=== PATIENT | male | born 1990 | race Caucasian/White ===

== ENCOUNTER → 2020-09-04 | Outpatient (CLI) | payer OTHER ==
[2020-09-04 16:44] LABS: BASOPHILS PERCENT AUTO 1 % (0-2); EOSINOPHILS ABSOLUTE AUTO 0.24 K/mm3 (0.00-0.68); EOSINOPHILS PERCENT AUTO 3 % (0-6); Hematocrit 50.2 % (37.0-53.0); Hemoglobin 15.6 g/dL (13.5-17.5); IMMATURE GRAN ABSOLUTE AUTO 0.01 K/mm3 (0.00-0.10); IMMATURE GRAN PERCENT AUTO 0 % (0-1); LYMPHOCYTES ABSOLUTE AUTO 2.19 K/mm3 (0.84-5.20); LYMPHOCYTES PERCENT AUTO 29 % (21-46); MONOCYTES ABSOLUTE AUTO 0.36 K/mm3 (0.16-1.47); MONOCYTES PERCENT AUTO 5 % (4-13); Mean Corpuscular HGB 30.6 pg (26.0-34.0); Mean Corpuscular HGB Conc 31.1 g/dL (31.5-36.5); Mean Corpuscular Volume 99 fL (80-100); Mean Platelet Volume 9.1 fL (9.1-12.4); NEUTROPHILS ABSOLUTE AUTO 4.71 K/mm3 (1.96-9.15); NEUTROPHILS PERCENT AUTO 62 % (41-73); Platelet Count 331 K/mm3 (150-400); RDW Coefficient Variation 14.1 % (11.7-14.2); RDW Standard Deviation 51.7 fL (35.1-46.3); Red Blood Cell Count 5.09 M/mm3 (4.30-5.90); White Blood Cell Count 7.61 K/mm3 (4.00-11.30)
[2020-09-04 17:31] LABS: Alanine Aminotransfer (ALT/SGP 24 U/L (12-78); Albumin, Blood 3.7 g/dL (3.4-5.0); Albumin/Globulin Ratio 0.9 (0.8-1.8); Alk Phos 54 U/L (50-136); Anion Gap 3 mmol/L (6-16); Aspartate Aminotrans (AST/SGOT 28 U/L (12-37); Bilirubin, Total 0.4 mg/dL (0.1-1.0); Blood Urea Nitrogen 10 mg/dL (8-24); CO2, Blood 30 mmol/L (21-32); Calcium, Blood 9.6 mg/dL (8.5-10.1); Chloride, Blood 105 mmol/L (98-108); Creatinine, Blood 1.11 mg/dL (0.60-1.20); Globulin, Blood 4.3 g/dL (2.2-4.0); Glomerular Filtration Rate >60 (60-); Glucose, Blood 84 mg/dL (70-99); Potassium, Blood 4.5 mmol/L (3.5-5.5); Sodium, Blood 138 mmol/L (136-145)
== END | disposition home or self-care (01) ==
LOC: LAB SHORT 15:05
PROVIDERS: Physician Assistant
DX: I10 Essential (primary) hypertension (principal); R60.0 Localized edema
CPT/HCPCS: 80053; 83880; 84443; 85025

== ENCOUNTER 2021-01-19 10:07 | Emergency (ER) | payer OTHER ==
[~2021-01-19] VITALS: Ht 167.6 cm; Wt 217.7 kg
[2021-01-19] MEDS ORDERED: ALBU90OI INH (11:23)
[2021-01-19] MEDS ORDERED: Prinivil10 MG (11:23)
[2021-01-19 11:33] LABS: BASOPHILS ABSOLUTE AUTO 0.09 K/mm3 (0.00-0.23); BASOPHILS PERCENT AUTO 1 % (0-2); EOSINOPHILS ABSOLUTE AUTO 0.21 K/mm3 (0.00-0.68); EOSINOPHILS PERCENT AUTO 3 % (0-6); Hemoglobin 14.2 g/dL (13.5-17.5); IMMATURE GRAN ABSOLUTE AUTO 0.01 K/mm3 (0.00-0.10); IMMATURE GRAN PERCENT AUTO 0 % (0-1); LYMPHOCYTES ABSOLUTE AUTO 2.28 K/mm3 (0.84-5.20); LYMPHOCYTES PERCENT AUTO 32 % (21-46); MONOCYTES ABSOLUTE AUTO 0.37 K/mm3 (0.16-1.47); MONOCYTES PERCENT AUTO 5 % (4-13); Mean Corpuscular HGB 30.3 pg (26.0-34.0); Mean Corpuscular HGB Conc 31.6 g/dL (31.5-36.5); Mean Corpuscular Volume 96 fL (80-100); Mean Platelet Volume 8.6 fL (9.1-12.4); NEUTROPHILS ABSOLUTE AUTO 4.25 K/mm3 (1.96-9.15); NEUTROPHILS PERCENT AUTO 59 % (41-73); Platelet Count 296 K/mm3 (150-400); RDW Coefficient Variation 14.5 % (11.7-14.2); RDW Standard Deviation 51.1 fL (35.1-46.3); Red Blood Cell Count 4.68 M/mm3 (4.30-5.90); White Blood Cell Count 7.21 K/mm3 (4.00-11.30)
[2021-01-19 11:37] LABS: Base Excess Venous 6.1 mmol/L; PCO2 Venous 52.9 mmHg (38-42); PO2 Venous 42.3 mmHg (38-42); pH Blood Venous 7.38 (7.34-7.37)
[2021-01-19 11:52] LABS: Influenza A, PCR NEGATIVE (NEGATIVE); Influenza B, PCR NEGATIVE (NEGATIVE); Resp Syncytial Virus, PCR NEGATIVE (NEGATIVE); SARS-Cov-2 (COVID-19) PCR, MMC NEGATIVE (NEGATIVE)
[2021-01-19 11:59] LABS: Alanine Aminotransfer (ALT/SGP 22 U/L (12-78); Albumin, Blood 3.2 g/dL (3.4-5.0); Albumin/Globulin Ratio 0.7 (0.8-1.8); Alk Phos 48 U/L (50-136); Anion Gap 6 mmol/L (6-16); Aspartate Aminotrans (AST/SGOT 25 U/L (12-37); Bilirubin, Total 0.5 mg/dL (0.1-1.0); Blood Urea Nitrogen 13 mg/dL (8-24); Bun/Creatinine Ratio 12.1 (12.0-20.0); CO2, Blood 29 mmol/L (21-32); Calcium, Blood 9.8 mg/dL (8.5-10.1); Chloride, Blood 103 mmol/L (98-108); Creatinine, Blood 1.07 mg/dL (0.60-1.20); Globulin, Blood 4.4 g/dL (2.2-4.0); Glomerular Filtration Rate >60 (60-); Glucose, Blood 90 mg/dL (70-99); Potassium, Blood 4.2 mmol/L (3.5-5.5); Sodium, Blood 138 mmol/L (136-145); Total Protein, Blood 7.6 g/dL (6.4-8.2); Troponin I <0.015 ng/mL (0.000-0.040)
[2021-01-19] MEDS ORDERED: Lasix20 MG PO (12:52)
== END 2021-01-19 13:13 | disposition home or self-care (01) ==
LOC: ER 10:07
PROVIDERS: Emergency Medicine
DX: R60.0 Localized edema (principal); F41.9 Anxiety disorder, unspecified; F32.9 Major depressive disorder, single episode, unspecified; J45.909 Unspecified asthma, uncomplicated; E66.01 Morbid (severe) obesity due to excess calories; Z79.899 Other long term (current) drug therapy; Z68.45 Body mass index [BMI] 70 or greater, adult; Z20.822 Contact with and (suspected) exposure to COVID-19
CPT/HCPCS: 0241U; 36415; 71046; 80053; 82803; 83880; 84443; 84484; 85025; 93005; 93010; 99285-25

== ENCOUNTER 2022-07-17 20:22 | Inpatient (IN) | payer OTHER ==
[~2022-07-17] VITALS: Ht 167.6 cm; Wt 247.7 kg
[~2022-07-17 20:22] MED LIST: ALBU90OI INH; Lasix20 MG PO; Prinivil10 MG
[2022-07-17 21:19] LABS: BASOPHILS ABSOLUTE AUTO 0.08 K/mm3 (0.00-0.23); BASOPHILS PERCENT AUTO 1 % (0-2); EOSINOPHILS ABSOLUTE AUTO 0.03 K/mm3 (0.00-0.68); EOSINOPHILS PERCENT AUTO 0 % (0-6); Hematocrit 45.5 % (37.0-53.0); Hemoglobin 14.7 g/dL (13.5-17.5); IMMATURE GRAN ABSOLUTE AUTO 0.03 K/mm3 (0.00-0.10); IMMATURE GRAN PERCENT AUTO 0 % (0-1); LYMPHOCYTES ABSOLUTE AUTO 1.64 K/mm3 (0.84-5.20); LYMPHOCYTES PERCENT AUTO 19 % (21-46); MONOCYTES ABSOLUTE AUTO 0.51 K/mm3 (0.16-1.47); MONOCYTES PERCENT AUTO 6 % (4-13); Mean Corpuscular HGB 29.8 pg (26.0-34.0); Mean Corpuscular HGB Conc 32.3 g/dL (31.5-36.5); Mean Corpuscular Volume 92 fL (80-100); Mean Platelet Volume 8.5 fL (9.1-12.4); NEUTROPHILS PERCENT AUTO 74 % (41-73); Platelet Count 247 K/mm3 (150-400); RDW Coefficient Variation 15.4 % (11.7-14.2); RDW Standard Deviation 52.4 fL (35.1-46.3); Red Blood Cell Count 4.94 M/mm3 (4.30-5.90); White Blood Cell Count 8.79 K/mm3 (4.00-11.30)
[2022-07-17 21:28] LABS: Albumin, Blood 3.5 g/dL (3.4-5.0); Albumin/Globulin Ratio 0.9 (0.8-1.8); Bilirubin, Total 1.5 mg/dL (0.1-1.0); Bun/Creatinine Ratio 9.7 (12.0-20.0); Calcium, Blood 9.2 mg/dL (8.5-10.1); Creatinine, Blood 1.24 mg/dL (0.60-1.20); Potassium, Blood 4.2 mmol/L (3.5-5.5); Total Protein, Blood 7.5 g/dL (6.4-8.2)
[2022-07-17 21:57] LABS: Influenza A, PCR NEGATIVE (NEGATIVE); Influenza B, PCR NEGATIVE (NEGATIVE); Resp Syncytial Virus, PCR NEGATIVE (NEGATIVE); SARS-Cov-2 (COVID-19) PCR, MMC NEGATIVE (NEGATIVE)
[2022-07-17] MEDS ORDERED: POTA8 (21:58)
[2022-07-18] MEDS ORDERED: ATOMOXETINE HCL80 M3 PO ×2 (00:17)
[2022-07-18 00:28] VITALS: BP 138/84
--- NOTE | 2022-07-18 01:49 | NUR ---
Pt arrived to floor by streacher, pt able to stand and walk with out difficulty. Pt is a&o x4 pt hot and fan paced to blow cool arit on pt pt sponged down a litle and powder applyed to help pt feel less sticky . Pt had stated he had been using nystatin powder, skin looked good with danuta some pinkness to folds. Belly button was red and irritated and pt given triple antibiotic ointment to put on belly button. Pt resting on his stomach looking at phone. Call light in reach.
[2022-07-18 04:17] VITALS: BP 153/94
[2022-07-18 06:56] LABS: Albumin, Blood 3.1 g/dL (3.4-5.0); Albumin/Globulin Ratio 0.8 (0.8-1.8); Bilirubin, Total 0.8 mg/dL (0.1-1.0); Bun/Creatinine Ratio 11.4 (12.0-20.0); Calcium, Blood 8.8 mg/dL (8.5-10.1); Creatinine, Blood 1.14 mg/dL (0.60-1.20); Globulin, Blood 3.7 g/dL (2.2-4.0); Potassium, Blood 4.2 mmol/L (3.5-5.5); Total Protein, Blood 6.8 g/dL (6.4-8.2)
[2022-07-18 07:33] VITALS: BP 162/94
[2022-07-18 08:25] LABS: BASOPHILS ABSOLUTE AUTO 0.06 K/mm3 (0.00-0.23); BASOPHILS PERCENT AUTO 1 % (0-2); EOSINOPHILS ABSOLUTE AUTO 0.06 K/mm3 (0.00-0.68); EOSINOPHILS PERCENT AUTO 1 % (0-6); Hematocrit 43.7 % (37.0-53.0); Hemoglobin 13.8 g/dL (13.5-17.5); IMMATURE GRAN ABSOLUTE AUTO 0.02 K/mm3 (0.00-0.10); IMMATURE GRAN PERCENT AUTO 0 % (0-1); LYMPHOCYTES ABSOLUTE AUTO 1.47 K/mm3 (0.84-5.20); LYMPHOCYTES PERCENT AUTO 21 % (21-46); MONOCYTES ABSOLUTE AUTO 0.49 K/mm3 (0.16-1.47); MONOCYTES PERCENT AUTO 7 % (4-13); Mean Corpuscular HGB 29.5 pg (26.0-34.0); Mean Corpuscular HGB Conc 31.6 g/dL (31.5-36.5); Mean Corpuscular Volume 93 fL (80-100); Mean Platelet Volume 8.4 fL (9.1-12.4); NEUTROPHILS ABSOLUTE AUTO 4.96 K/mm3 (1.96-9.15); NEUTROPHILS PERCENT AUTO 70 % (41-73); Platelet Count 217 K/mm3 (150-400); RDW Coefficient Variation 15.7 % (11.7-14.2); RDW Standard Deviation 54.4 fL (35.1-46.3); Red Blood Cell Count 4.68 M/mm3 (4.30-5.90); White Blood Cell Count 7.06 K/mm3 (4.00-11.30)
[2022-07-18 15:47] VITALS: BP 148/103
--- NOTE | 2022-07-18 20:01 | NUR ---
SUMMARY- PT A/O X4, INDEPENDANT IN ROOM. VOIDS IN BATHROOM. TOLERATING FOOD AND FLUIDS. REDNESS TO LLE REMAINS UNCHANGED, MARKED WITH SHARPIE. STATES HE FEELS A LITTLE WEAK AND TIRED BUT OVERALL OK. HOPING TO GO HOME TOMORROW ON ORAL ABX HE HAS A CAT AND ALOT HE HAS TO DO. LOST HIS I.D. CARE IN ED DURING ADMISSION, THEY NEVER BROUGHT HIS CARD BACK. RN AND PT LOOKED THROROUGHLY THROUGH HIS CHART AND ONLY BELONGINGS ARE THE CLOTHS HE IS WEARING, NOT ABLE TO FIND. PT TOP SPOTTER NOTIFIED VIA VOICERA TO LOCATE ID CARD [id number]
[2022-07-18 20:03] VITALS: BP 137/94
[2022-07-19 04:12] VITALS: BP 150/89
--- NOTE | 2022-07-19 05:13 | NUR ---
SHIFT SUMMERY. PT HAS LOST HIS ID WHEN HE WAS IN THE ER AND WAS VERY CONCERNED ABOUT IT. MORELIA UTILITY TECH WAS ABLE TO TALK TO SOME ONE IN ED AND ID WAS FOUND AND RETURNED TO THE PT. PT SLEEPING WITH CPAP MASK ON. PT WOKE ABOUT 0200 AND WAS UPSET, PT CHRISU CONCERNED ABOUT HIS LEG WITH THE CELLULITUS, PT BECAFME VERY TEARFULL. , PT AFRAID THAT HE MIGHT LOOSE HIS LEG DUE TO INFECTION. TALKED TO PT ABOUT LINE DRAWN ON HIS LEG IN THE ED HOW THE REDNESS HAD NOT GONE OVER THE LINE AND SEEMED TO BE LESS RED. ALSO LEG NOT HOT AND NOT SEEMING A SWOLLEN. TALKED TO PT ABOUT BC THAT THEY WOULD SHOW WHITCH ANTIBIOTIWOULD KILL THE BACTERIA. PT RINA SEEMED TO E A LITTLE LESS WORIED BUT STILL CONCERNED .
[2022-07-19 07:42] VITALS: BP 155/78
[2022-07-19] MEDS ORDERED: VISBIOME 112.51 EACH PO ×2 (11:27)
[2022-07-19] MEDS ORDERED: ACET325 PO ×2 (11:27)
[2022-07-19] MEDS ORDERED: CEFTRIAXONE2 G1 IV ×2 (11:28)
== END 2022-07-19 13:10 | disposition home or self-care (01) | DRG 872 ==
LOC: ER 20:22 → MEDS 20:23 → EDPENDDISDT 07-19 09:38 → EDPENDDISTM 07-19 09:38 → ENPENDDIS 07-19 09:38 → MEDS 07-19 13:10
PROVIDERS: Emergency Medicine; Family Medicine; Student in an Organized Health Care Education/Training Program; ADMIT Internal Medicine
DX: A41.9 Sepsis, unspecified organism (principal); L03.116 Cellulitis of left lower limb; Z68.45 Body mass index [BMI] 70 or greater, adult; Z20.822 Contact with and (suspected) exposure to COVID-19; F41.3 Other mixed anxiety disorders; E66.9 Obesity, unspecified; G47.33 Obstructive sleep apnea (adult) (pediatric); J45.909 Unspecified asthma, uncomplicated; Z99.89 Dependence on other enabling machines and devices; Z91.198 Patient's noncompliance with other medical treatment and regimen for other reason; Z79.899 Other long term (current) drug therapy
CPT/HCPCS: 0241U; 36415; 71045; 80053; 83605; 85025; 87040; 93005; 93010; 94660; 94762; 96365; 96366; 96372; 96375; 96376; 99285-25; A9270; G0378; J0690; J0696; J1650; J2405; J3370; J7050; J7120

== ENCOUNTER 2022-07-21 13:03 | Day surgery (SDC) | payer OTHER ==
[~2022-07-21 13:03] MED LIST changes: +ACET325 PO; +ATOMOXETINE HCL80 M3 PO; +CEFTRIAXONE2 G1 IV; +POTA8; +VISBIOME 112.51 EACH PO
[2022-07-21 14:06] VITALS: BP 148/95
== END 2022-07-21 14:39 | disposition home or self-care (01) ==
LOC: ATC 13:03
DX: L03.116 Cellulitis of left lower limb (principal); J45.909 Unspecified asthma, uncomplicated; G47.33 Obstructive sleep apnea (adult) (pediatric); F41.8 Other specified anxiety disorders; Z79.899 Other long term (current) drug therapy
CPT/HCPCS: 96374; C1751; J0696

== ENCOUNTER 2022-07-22 03:37 | Day surgery (SDC) | payer OTHER ==
[2022-07-22 14:38] VITALS: BP 135/82
== END 2022-07-22 23:09 | disposition home or self-care (01) ==
LOC: ATC 03:37
DX: L03.116 Cellulitis of left lower limb (principal); E66.9 Obesity, unspecified; F41.9 Anxiety disorder, unspecified; F32.A Depression, unspecified; G47.33 Obstructive sleep apnea (adult) (pediatric)
CPT/HCPCS: J0696

== ENCOUNTER 2022-07-23 03:13 | Day surgery (SDC) | payer OTHER ==
[2022-07-23 14:00] VITALS: BP 127/78
== END 2022-07-23 14:06 | disposition home or self-care (01) ==
LOC: ATC 03:13
DX: L03.116 Cellulitis of left lower limb (principal); Z72.0 Tobacco use; F41.8 Other specified anxiety disorders; G47.33 Obstructive sleep apnea (adult) (pediatric)
CPT/HCPCS: J0696

== ENCOUNTER 2022-07-24 10:02 | Emergency (ER) | payer OTHER ==
[~2022-07-24] VITALS: Ht 167.6 cm; Wt 246.8 kg
[2022-07-24 10:08] VITALS: BP 143/92
== END 2022-07-24 11:37 | disposition home or self-care (01) ==
LOC: ER 10:02
DX: L03.116 Cellulitis of left lower limb (principal); Z79.899 Other long term (current) drug therapy; Z87.891 Personal history of nicotine dependence
CPT/HCPCS: 93971; 96374; 99283-25; J0696

== ENCOUNTER 2022-07-25 03:38 | Day surgery (SDC) | payer OTHER ==
[2022-07-25 10:48] VITALS: BP 131/88
== END 2022-07-25 10:55 | disposition home or self-care (01) ==
LOC: ATC 03:38
DX: L03.116 Cellulitis of left lower limb (principal); G47.33 Obstructive sleep apnea (adult) (pediatric); F41.8 Other specified anxiety disorders; J45.909 Unspecified asthma, uncomplicated; Z79.899 Other long term (current) drug therapy
CPT/HCPCS: 96374; J0696

== ENCOUNTER 2022-07-26 02:46 | Day surgery (SDC) | payer OTHER ==
[2022-07-26 14:12] VITALS: BP 138/84
== END 2022-07-26 14:20 | disposition home or self-care (01) ==
LOC: ATC 02:46
DX: L03.116 Cellulitis of left lower limb (principal); G47.30 Sleep apnea, unspecified; F41.8 Other specified anxiety disorders
CPT/HCPCS: 96374; J0696

== ENCOUNTER 2022-07-29 11:52 | Emergency (ER) | payer OTHER ==
[~2022-07-29] VITALS: Ht 167.6 cm; Wt 246.8 kg
[2022-07-29 11:59] VITALS: BP 132/79
[2022-07-29] MEDS ORDERED: THERA-D2000 UNIT (12:03)
[2022-07-29] MEDS ORDERED: BRINTELLIX5 MG (12:04)
[2022-07-29] MEDS ORDERED: LISI10 (12:05)
[2022-07-29] MEDS ORDERED: POTA8 (12:06)
[2022-07-29] MEDS ORDERED: ABILIFY MYCITE10 M2 PO (12:11)
[2022-07-29 13:08] LABS: BASOPHILS ABSOLUTE AUTO 0.05 K/mm3 (0.00-0.23); BASOPHILS PERCENT AUTO 1 % (0-2); EOSINOPHILS ABSOLUTE AUTO 0.39 K/mm3 (0.00-0.68); EOSINOPHILS PERCENT AUTO 4 % (0-6); Hematocrit 48.1 % (37.0-53.0); Hemoglobin 15.4 g/dL (13.5-17.5); IMMATURE GRAN ABSOLUTE AUTO 0.04 K/mm3 (0.00-0.10); IMMATURE GRAN PERCENT AUTO 0 % (0-1); LYMPHOCYTES ABSOLUTE AUTO 1.77 K/mm3 (0.84-5.20); LYMPHOCYTES PERCENT AUTO 18 % (21-46); MONOCYTES ABSOLUTE AUTO 0.37 K/mm3 (0.16-1.47); MONOCYTES PERCENT AUTO 4 % (4-13); Mean Corpuscular HGB 29.5 pg (26.0-34.0); Mean Corpuscular Volume 92 fL (80-100); Mean Platelet Volume 8.5 fL (9.1-12.4); NEUTROPHILS ABSOLUTE AUTO 7.09 K/mm3 (1.96-9.15); NEUTROPHILS PERCENT AUTO 73 % (41-73); Platelet Count 358 K/mm3 (150-400); RDW Coefficient Variation 15.8 % (11.7-14.2); RDW Standard Deviation 52.1 fL (35.1-46.3); Red Blood Cell Count 5.22 M/mm3 (4.30-5.90); White Blood Cell Count 9.71 K/mm3 (4.00-11.30)
[2022-07-29 13:22] LABS: Albumin, Blood 3.4 g/dL (3.4-5.0); Albumin/Globulin Ratio 0.8 (0.8-1.8); Bilirubin, Total 0.7 mg/dL (0.1-1.0); Bun/Creatinine Ratio 11.7 (12.0-20.0); Calcium, Blood 9.3 mg/dL (8.5-10.1); Creatinine, Blood 1.11 mg/dL (0.60-1.20); Globulin, Blood 4.5 g/dL (2.2-4.0); Potassium, Blood 4.3 mmol/L (3.5-5.5); Total Protein, Blood 7.9 g/dL (6.4-8.2)
== END 2022-07-29 15:30 | disposition home or self-care (01) ==
LOC: ER 11:52
PROVIDERS: Physician Assistant
DX: L03.116 Cellulitis of left lower limb (principal); J45.909 Unspecified asthma, uncomplicated; F32.A Depression, unspecified; Z87.891 Personal history of nicotine dependence; Z79.899 Other long term (current) drug therapy
CPT/HCPCS: 80053; 85025; J0696

== ENCOUNTER 2022-07-31 02:59 | Day surgery (SDC) | payer OTHER ==
[~2022-07-31 02:59] MED LIST changes: +ABILIFY MYCITE10 M2 PO; +BRINTELLIX5 MG; +LISI10; +THERA-D2000 UNIT
[2022-07-31 11:02] VITALS: BP 139/100
== END 2022-07-31 11:16 | disposition home or self-care (01) ==
LOC: ATC 02:59
DX: A41.9 Sepsis, unspecified organism (principal); L03.116 Cellulitis of left lower limb; G47.33 Obstructive sleep apnea (adult) (pediatric); F41.8 Other specified anxiety disorders; J45.909 Unspecified asthma, uncomplicated
CPT/HCPCS: 96365; C1751; J0696

== ENCOUNTER 2022-08-01 02:55 | Day surgery (SDC) | payer OTHER ==
--- NOTE | 2022-08-01 11:27 | NUR ---
PATIENT CALLED AND ISNT COMING TODAY DUE TO TRANSPORTATION
[2022-08-01 13:22] VITALS: BP 144/92
--- NOTE | 2022-08-01 13:23 | NUR ---
PT PRESENTS WITH HIVES THROUGHOUT ENTIRE BODY. PT STATES THEY ITCH. DR IS AWARE AND PT IS TO CONTINUE ABX TX AND PT IS TO USE OTC BENADRYL FOR THE HIVES.
[2022-08-02] MEDS ORDERED: DIPHEN12.5 MG/1 PO (09:21)
== END 2022-08-01 13:37 | disposition home or self-care (01) ==
LOC: ATC 02:55
DX: A41.9 Sepsis, unspecified organism (principal); L03.116 Cellulitis of left lower limb; G47.33 Obstructive sleep apnea (adult) (pediatric); F41.8 Other specified anxiety disorders; J45.909 Unspecified asthma, uncomplicated; Z79.899 Other long term (current) drug therapy
CPT/HCPCS: 96365; J0696

== ENCOUNTER 2022-08-02 01:02 | Day surgery (SDC) | payer OTHER ==
[2022-08-02 08:46] VITALS: BP 143/97
[2022-08-02] MEDS ORDERED: DIPHEN12.5 MG/1 PO (09:21)
--- NOTE | 2022-08-02 09:22 | NUR ---
PT COMES IN TODAY COVERED IN HEAD TO TOE RASH. HE REPORTS IT IS WORSENING. MAMIE STATES THE RASH STARTED ABOUT A WEEK AGO. TAKING BENEDRYL DOESN'T HELP WITH ITCHING OR RASH. SPOKE WITH JEFFRY AT DR. HUBBARD'S OFFICE. ORDERS RECEIVED TO STOP ROCEPHIN. JEFFRY STATES THEY WILL GET A PRESCRIPTION TO [facility] FOR CLINDAMYCIN PO. UPDATED MAMIE. POWERGLIDE REMOVED. ROCEPHIN ADDED TO PT'S ALLERGY LIST.
== END 2022-08-02 09:09 | disposition home or self-care (01) ==
LOC: ATC 01:02
DX: Z45.2 Encounter for adjustment and management of vascular access device (principal); R21 Rash and other nonspecific skin eruption; Z53.09 Procedure and treatment not carried out because of other contraindication; A41.9 Sepsis, unspecified organism; L03.116 Cellulitis of left lower limb
CPT/HCPCS: 99211; J0696

== ENCOUNTER 2023-02-09 15:11 | Emergency (ER) | payer OTHER ==
[~2023-02-09] VITALS: Ht 167.6 cm; Wt 235.9 kg
[~2023-02-09 15:11] MED LIST changes: +DIPHEN12.5 MG/1 PO
[2023-02-09] MEDS ORDERED: GABA300 PO (15:25)
[2023-02-09 15:57] LABS: BASOPHILS ABSOLUTE AUTO 0.08 K/mm3 (0.00-0.23); BASOPHILS PERCENT AUTO 1 % (0-2); EOSINOPHILS ABSOLUTE AUTO 0.43 K/mm3 (0.00-0.68); EOSINOPHILS PERCENT AUTO 4 % (0-6); Hematocrit 40.1 % (37.0-53.0); Hemoglobin 12.9 g/dL (13.5-17.5); IMMATURE GRAN ABSOLUTE AUTO 0.04 K/mm3 (0.00-0.10); IMMATURE GRAN PERCENT AUTO 0 % (0-1); LYMPHOCYTES ABSOLUTE AUTO 2.12 K/mm3 (0.84-5.20); LYMPHOCYTES PERCENT AUTO 19 % (21-46); MONOCYTES ABSOLUTE AUTO 0.51 K/mm3 (0.16-1.47); MONOCYTES PERCENT AUTO 5 % (4-13); Mean Corpuscular HGB 31.5 pg (26.0-34.0); Mean Corpuscular HGB Conc 32.2 g/dL (31.5-36.5); Mean Corpuscular Volume 98 fL (80-100); Mean Platelet Volume 8.6 fL (9.1-12.4); NEUTROPHILS ABSOLUTE AUTO 8.06 K/mm3 (1.96-9.15); NEUTROPHILS PERCENT AUTO 72 % (41-73); Platelet Count 308 K/mm3 (150-400); RDW Coefficient Variation 15.8 % (11.7-14.2); White Blood Cell Count 11.24 K/mm3 (4.00-11.30)
[2023-02-09 16:15] LABS: Albumin, Blood 3.2 g/dL (3.4-5.0); Albumin/Globulin Ratio 0.7 (0.8-1.8); Bilirubin, Total 0.5 mg/dL (0.1-1.0); Calcium, Blood 9.1 mg/dL (8.5-10.1); Creatinine, Blood 1.07 mg/dL (0.60-1.20); Globulin, Blood 4.3 g/dL (2.2-4.0); Potassium, Blood 4.1 mmol/L (3.5-5.5); Total Protein, Blood 7.5 g/dL (6.4-8.2)
[2023-02-09 16:20] VITALS: BP 115/67
[2023-02-09] MEDS ORDERED: Cleocin HCl150 MG PO (19:01)
== END 2023-02-09 19:30 | disposition home or self-care (01) ==
LOC: ER 15:11
PROVIDERS: Physician Assistant
DX: L03.116 Cellulitis of left lower limb (principal); J45.909 Unspecified asthma, uncomplicated; I10 Essential (primary) hypertension; E66.01 Morbid (severe) obesity due to excess calories; Z68.45 Body mass index [BMI] 70 or greater, adult; Z88.1 Allergy status to other antibiotic agents; Z79.899 Other long term (current) drug therapy; Z87.891 Personal history of nicotine dependence
CPT/HCPCS: 80053; 83605; 85025; 93971; 96360; 99284-25; A9270; J7030

== ENCOUNTER 2023-09-16 17:11 | Emergency (ER) | payer OTHER ==
[~2023-09-16] VITALS: Ht 167.6 cm; Wt 238.1 kg
[~2023-09-16 17:11] MED LIST changes: +Cleocin HCl150 MG PO; +GABA300 PO
[2023-09-16 17:59] LABS: BASOPHILS ABSOLUTE AUTO 0.05 K/mm3 (0.00-0.23); BASOPHILS PERCENT AUTO 1 % (0-2); EOSINOPHILS ABSOLUTE AUTO 0.12 K/mm3 (0.00-0.68); EOSINOPHILS PERCENT AUTO 2 % (0-6); Hematocrit 39.7 % (37.0-53.0); Hemoglobin 12.7 g/dL (13.5-17.5); IMMATURE GRAN ABSOLUTE AUTO 0.02 K/mm3 (0.00-0.10); IMMATURE GRAN PERCENT AUTO 0 % (0-1); LYMPHOCYTES ABSOLUTE AUTO 0.74 K/mm3 (0.84-5.20); LYMPHOCYTES PERCENT AUTO 14 % (21-46); MONOCYTES ABSOLUTE AUTO 0.49 K/mm3 (0.16-1.47); MONOCYTES PERCENT AUTO 9 % (4-13); Mean Corpuscular HGB 30.9 pg (26.0-34.0); Mean Corpuscular Volume 97 fL (80-100); Mean Platelet Volume 8.6 fL (9.1-12.4); NEUTROPHILS ABSOLUTE AUTO 3.91 K/mm3 (1.96-9.15); NEUTROPHILS PERCENT AUTO 73 % (41-73); Platelet Count 209 K/mm3 (150-400); RDW Coefficient Variation 15.5 % (11.7-14.2); RDW Standard Deviation 54.9 fL (35.1-46.3); Red Blood Cell Count 4.11 M/mm3 (4.30-5.90); White Blood Cell Count 5.33 K/mm3 (4.00-11.30)
[2023-09-16 18:41] LABS: C-REACTIVE PROTEIN, EXT RANGE 6.96 mg/dL (0.000-0.300)
[2023-09-16 18:43] LABS: Albumin, Blood 3.2 g/dL (3.4-5.0); Albumin/Globulin Ratio 0.8 (0.8-1.8); Bilirubin, Total 0.4 mg/dL (0.1-1.0); Bun/Creatinine Ratio 10.3 (12.0-20.0); Calcium, Blood 8.5 mg/dL (8.5-10.1); Creatinine, Blood 1.26 mg/dL (0.60-1.20); Globulin, Blood 4.2 g/dL (2.2-4.0); Potassium, Blood 3.8 mmol/L (3.5-5.5); Total Protein, Blood 7.4 g/dL (6.4-8.2)
[2023-09-16 20:56] VITALS: BP 153/81
[2023-09-16] MEDS ORDERED: SULTRIDS PO (21:50)
[2023-09-16] MEDS ORDERED: Trimethoprim/Sulfamethoxazole DS Tab PO ONE (21:50)
== END 2023-09-16 23:10 | disposition home or self-care (01) ==
LOC: ER 17:11
PROVIDERS: Physician Assistant
DX: L03.116 Cellulitis of left lower limb (principal); J45.909 Unspecified asthma, uncomplicated; I10 Essential (primary) hypertension; E66.9 Obesity, unspecified; Z68.45 Body mass index [BMI] 70 or greater, adult; Z87.891 Personal history of nicotine dependence; Z79.899 Other long term (current) drug therapy; Z88.1 Allergy status to other antibiotic agents
CPT/HCPCS: 80053; 83605; 85025; 86140; A9270

== ENCOUNTER → 2024-10-05 | Outpatient (CLI) | payer OTHER ==
[~2024-10-05] MED LIST changes: +SULTRIDS PO
== END ==
LOC: LAB SHORT 07:31 → LAB 07:31
DX: B35.1 Tinea unguium (principal); L60.2 Onychogryphosis
CPT/HCPCS: 88304; 88312

== ENCOUNTER 2025-01-05 09:21 | Observation (INO) | payer OTHER ==
[~2025-01-05] VITALS: Ht 167.6 cm; Wt 249.5 kg
[~2025-01-05 09:21] MED LIST changes: -BRINTELLIX5 MG; +BRINTELLIX5 MG PO
[2025-01-05 10:35] LABS: BASOPHILS ABSOLUTE AUTO 0.10 K/mm3 (0.00-0.23); BASOPHILS PERCENT AUTO 1 % (0-2); EOSINOPHILS ABSOLUTE AUTO 0.70 K/mm3 (0.00-0.68); EOSINOPHILS PERCENT AUTO 10 % (0-6); Hematocrit 45.4 % (37.0-53.0); Hemoglobin 14.4 g/dL (13.5-17.5); IMMATURE GRAN ABSOLUTE AUTO 0.02 K/mm3 (0.00-0.10); IMMATURE GRAN PERCENT AUTO 0 % (0-1); LYMPHOCYTES ABSOLUTE AUTO 2.07 K/mm3 (0.84-5.20); LYMPHOCYTES PERCENT AUTO 29 % (21-46); MONOCYTES ABSOLUTE AUTO 0.38 K/mm3 (0.16-1.47); MONOCYTES PERCENT AUTO 5 % (4-13); Mean Corpuscular HGB Conc 31.7 g/dL (31.5-36.5); Mean Corpuscular Volume 99 fL (80-100); NEUTROPHILS ABSOLUTE AUTO 3.95 K/mm3 (1.96-9.15); NEUTROPHILS PERCENT AUTO 55 % (41-73); NRBC ABSOLUTE 0.00 K/mm3 (0.00-0.02); NRBC Auto 0.0 /100 WBC (0.0-0.2); Platelet Count 239 K/mm3 (150-400); RDW Coefficient Variation 15.7 % (11.7-14.2); RDW Standard Deviation 56.6 fL (35.1-46.3)
[2025-01-05 10:58] LABS: Ethanol (Alcohol), Blood, Med <3 mg/dL; Salicylate <1.7 mg/dL (2.8-20.0)
[2025-01-05 11:26] LABS: Alanine Aminotransfer (ALT/SGP 22 U/L (12-78); Albumin, Blood 3.8 g/dL (3.4-5.0); Albumin/Globulin Ratio 1.0 (0.8-1.8); Anion Gap 9 mmol/L (3-11); Aspartate Aminotrans (AST/SGOT 32 U/L (12-37); Bilirubin, Total 0.4 mg/dL (0.1-1.0); Blood Urea Nitrogen 13 mg/dL (8-24); CO2, Blood 22 mmol/L (21-32); Calcium, Blood 9.0 mg/dL (8.5-10.1); Chloride, Blood 109 mmol/L (98-108); Creatinine, Blood 0.98 mg/dL (0.60-1.20); Globulin, Blood 3.7 g/dL (2.2-4.0); Glucose, Blood 94 mg/dL (70-99); Potassium, Blood 4.2 mmol/L (3.5-5.5); Sodium, Blood 136 mmol/L (136-145); Total Protein, Blood 7.5 g/dL (6.4-8.2)
[2025-01-05 11:33] LABS: Acetaminophen, Random <2.0 ug/mL (10.0-30.0)
[2025-01-05 13:07] LABS: Source, Urine Clean Catch
[2025-01-05 13:13] LABS: Bilirubin, Urine Neg (Neg); Color, Urine Yellow (P-Yellow); Glucose Qualitative, Urine Neg (Neg); Ketones, Urine Neg (Neg); Leukocyte Esterase, Urine Neg (Neg); Protein, Urine Neg (Neg); Specific Gravity, Urine 1.020 (1.003-1.022); Urobilinogen, Urine NORM (Normal)
[2025-01-05 14:03] LABS: U Amphetamine Screen Not Detected; U Barbiturate Screen Not Detected; U Benzodiazapine Screen Not Detected; U Buprenorphine Screen Not Detected; U Cannabinoids Screen DETECTED; U Cocaine Screen Not Detected; U Methadone Screen Not Detected; U Methamphetamine Screen Not Detected; U Opiates Screen Not Detected; U Oxycodone Screen Not Detected; U Phencyclidine Screen Not Detected
[2025-01-05] MEDS ORDERED: VORTIOXETINE HYDROBROMIDE 20 MG TABLET PO ONE ×2 (17:45→18:00)
[2025-01-06] MEDS ORDERED: ATOMOXETINE HCL PO SCH (06:00)
[2025-01-06] MEDS ORDERED: Atomoxetine HCL 40 MG Cap PO SCH (06:00)
[2025-01-06 08:39] VITALS: BP 166/97
== END 2025-01-06 10:30 | disposition other institution (70) ==
LOC: ER 09:21 → EOR 09:22
PROVIDERS: ADMIT Physician Assistant
DX: F32.A Depression, unspecified (principal); R45.851 Suicidal ideations; R44.1 Visual hallucinations; Z87.891 Personal history of nicotine dependence
CPT/HCPCS: 80053; 80320; 81003; 85025; 99285; A9270; G0378; G0480